=== PATIENT | female | born 1960 | race Caucasian/White ===

== ENCOUNTER 2017-05-30 05:22 | Inpatient (IN) | payer OTHER ==
[~2017-05-30] VITALS: Ht 167.6 cm; Wt 78.3 kg
[2017-05-30] MEDS ORDERED: PROAIR HFA8.5 GM INH (05:35)
[2017-05-30] MEDS ORDERED: ALL DAY ALLERGY10 MG PO (05:36)
[2017-05-30] MEDS ORDERED: LOTENSIN20 M1 PO (05:36)
[2017-05-30] MEDS ORDERED: BENZONATATE100 M1 PO (05:36)
[2017-05-30] MEDS ORDERED: COMBIPATCH 0.01 EACH TP (05:37)
[2017-05-30] MEDS ORDERED: LUTEIN20 M3 PO (05:37)
[2017-05-30] MEDS ORDERED: ATIVAN1 M1 PO (05:37)
[2017-05-30] MEDS ORDERED: OMEPRAZOLE20 M3 PO (05:38)
--- NOTE | 2017-05-30 06:28 | RADIOLOGY REPORT ---
EXAMINATION: XR CHEST CLINICAL INFORMATION: Cough. Congestion. COMPARISON: CT 08/26/2016 TECHNIQUE: 2 views of the chest were obtained. FINDINGS: The lungs are well expanded. There is no focal consolidation, edema, or effusion. No pneumothorax. The cardiomediastinal silhouette is within normal limits. No acute osseous abnormality. IMPRESSION: No acute pulmonary findings.
--- NOTE | 2017-05-30 06:57 | ED CARDIAC/CP/PALPITATIONS ---
See Addendum History of Present Illness General Chief Complaint: Upper Respiratory Sx/Fever Stated Complaint: " DIFF.BREATHING,URGENTCARE DIAG.UPPER RESP [id number]" Source: patient, family, old records Exam Limitations: no limitations Vital Signs & Intake/Output Vital Signs & Intake/Output Vital Signs Date Time Temp Pulse Resp B/P B/P Pulse O2 O2 Flow FiO2 Mean Ox Delivery Rate 05/30 0719 97.8 90 22 144/87 95 Room Air 05/30 0636 95 05/30 0538 98.5 114 24 175/114 98 Allergies Coded Allergies: Sulfa (Sulfonamide Antibiotics) (HIVES 05/30/17) amoxicillin (From AUGMENTIN) (RASH 05/30/17) clavulanic acid (From AUGMENTIN) (RASH 05/30/17) itraconazole (From SPORANOX) (HIVES 05/30/17) metronidazole (From FLAGYL) (GI 05/30/17) neomycin (GI 05/30/17) Reconcile Medications Albuterol Sulfate (Proair Hfa) 90 MCG HFA.AER.AD 2 PUF INH Q4-6 PRN PRN SOB ( Reported) Benazepril HCl (Lotensin) 20 MG TABLET 1 TAB PO DAILY BP (Reported) Benzonatate 100 MG CAPSULE 1 CAP PO TID COUGH (Reported) Cetirizine HCl (All Day Allergy) 10 MG TABLET 1 TAB PO DAILY ALLERGIES ( Reported) Estradiol/Norethindrone Acet (Combipatch 0.05-0.14 MG Ptch) 0.05 MG-0.14 MG/24 HOUR PATCH.TDSW 1 PATCH TP HORMONE (Reported) LORazepam (Ativan) 1 MG TAB 1 TAB PO TID ANXIETY (Reported) Lutein 20 MG CAPSULE 1 TAB PO DAILY NK (Reported) Omeprazole 20 MG TABLET.DR 1 TAB PO DAILY GERD (Reported) Triage Note: PER PT SEEN AT URGENT CARE 05/21/17 WAS NOT PRESCRIBED ANTIBIOTICS GIVEN COUGH MED AND INHALER DX W URI Triage Nurses Notes Reviewed? yes Onset: Last week Duration: day(s):, constant, continues in ED Timing: recent history Quality/Severity: moderate, pressure Location: substernal Radiation: no radiation Activities at Onset: rest Prior Chest Pain/Card Workup: no prior cardiac workup Modifying Factors: Worsens With: movement. Nitro Today/Relief: no nitro taken today Aspirin Today: no aspirin today Associated Symptoms: shortness of breath, weakness LMP (ages 10-50): post menopausal : No Patient currently breastfeeds: No HPI: 1 week prior to admission patient complains of upper respiratory congestion nonproductive cough with sinus pressure. She later developed substernal chest discomfort described as pressure nonradiating constant worse with exertion. She denies fever chills nausea vomiting diarrhea abdominal pain headache dysuria rash bleeding. (Devin Proctor MD) Past History Travel History Traveled to [place] past 21 day No Medical History Any Pertinent Medical History? see below for history Neurological: NONE EENT: NONE Cardiovascular: hypertension Respiratory: ALLERGIES Gastrointestinal: GERD Hepatic: NONE Renal: NONE Musculoskeletal: NONE Psychiatric: NONE Endocrine: NONE Surgical History Surgical History: non-contributory Psychosocial History What is your primary language Mongolian Tobacco Use: Never used Family History Hx Contributory? No (Devin Proctor MD) Review of Systems Review of Systems Constitutional: Reports: see HPI, malaise. EENTM: Reports: see HPI, nasal congestion. Respiratory: Reports: see HPI, cough, short of breath. Denies: sputum production. Cardiovascular: Reports: see HPI, chest pain. GI: Reports: no symptoms. Genitourinary: Reports: no symptoms. Musculoskeletal: Reports: no symptoms. Skin: Reports: no symptoms. Neurological/Psychological: Reports: no symptoms. Hematologic/Endocrine: Reports: no symptoms. Immunologic/Allergic: Reports: no symptoms. All Other Systems: Reviewed and Negative (Devin Proctor MD) Physical Exam Physical Exam General Appearance: well developed/nourished, alert, awake, anxious, moderate distress, obese Head: atraumatic, normal appearance Eyes: Bilateral: normal appearance. Ears, Nose, Throat: normal pharynx, normal ENT inspection Neck: normal inspection, supple, full range of motion, no midline tenderness Respiratory: chest non-tender, no respiratory distress, quiet respiration, decreased breath sounds Cardiovascular: regular rate/rhythm, normal peripheral pulses, tachycardia, norml femoral pulses equa Peripheral Pulses: 4+ carotid (R), 4+ carotid (L) Gastrointestinal: normal bowel sounds, soft, non-tender, no organomegaly Back: normal inspection, normal range of motion Extremities: normal inspection, normal capillary refill, normal range of motion, no edema Neurologic/Psych: no motor/sensory deficits, awake, alert, oriented x 3, normal gait, normal mood/affect, manufacturing weaver II-XII nml as tested Reflexes: 2+: bicep (R), bicep (L). Skin: intact, normal color, warm/dry Lymphatic: no anterior cervical ai Core Measures ACS in differential dx? No CVA/TIA Diagnosis No Sepsis Present: No Sepsis Focused Exam Completed? No (Esthela LOZOYA,Devin) Progress Differential Diagnosis: atrial fibrillation, costochondritis, hyperkalemia, musculoskeletal pain, pneumonia Plan of Care: Orders Procedure Date/time Status TROPONIN LEVEL 05/30 1000 Active EKG 05/30 1000 Active D-DIMER 05/30 629 Complete TROPONIN LEVEL 05/30 626 Complete COMPREHENSIVE METABOLIC PANEL 05/30 626 Complete CBC WITHOUT DIFFERENTIAL 05/30 626 Complete B-TYPE NATRIURETIC PEP (BNP) 05/30 626 Complete EKG 05/30 626 Active Current Medications Sig/Oralia Start time Last Medication Dose Stop Time Status Admin Albuterol Sulfate 3 ML ONCE ONE 05/30 814 UNVr (Proventil) 05/31 815 Ipratropium [place] 2.5 ML ONCE ONE 05/30 814 UNVr (Atrovent) 05/31 815 Prednisone 60 MG ONCE ONE 05/30 814 UNVr 05/31 815 Laboratory Tests 05/30/17 0700: Anion Gap 15, Estimated GFR > 60, BUN/Creatinine Ratio 12.5, Glucose 86, Calcium 9.4, Total Bilirubin 0.7, AST 63 H, ALT 63 H, Alkaline Phosphatase 97, Troponin I < 0.01, Qef-Y-Jpkficjrgyu Pept 98.5, Total Protein 7.3, Albumin 4.5, Globulin 2.8, Albumin/Globulin Ratio 1.6, D-Dimer High Sensitivty < 200, CBC w Diff NO MAN DIFF REQ, RBC 4.49, MCV 93.4, MCH 31.7 H, MCHC 34.0, RDW 13.3, MPV 6.9 L, Gran % 65.9, Lymphocytes % 13.9 L, Monocytes % 7.5, Eosinophils % 12.2 H, Basophils % 0.5, Absolute Granulocytes 7.0 H, Absolute Lymphocytes 1.5, Absolute Monocytes 0.8 H, Absolute Eosinophils 1.3, Absolute Basophils 0 Diagnostic Imaging: Viewed by Me: Radiology Read. Discussed w/RAD: Radiology Read. CXR Impression: no acute abnormality, no infiltrates Initial ED EKG: normal axis, normal intervals, normal p-waves, normal QRS complex, normal sinus rhythm, rate (sinus tachycardia), no ST T wave changes Prior EKG: unchanged Rhythm Strip: sinus tachycardia Hand-Off Endorsed To: Willy Dickson DO Endorsed Time: 722 Pending: labs (Devin Proctor MD) Departure Departure Disposition: STILL A PATIENT Condition: Stable Clinical Impression Primary Impression: Chest pain syndrome Secondary Impressions: Bronchitis Referrals: Pieter LOZOYA,Darío Gross (PCP/Family) Departure Forms: Customer Survey General Discharge Information (Devin Proctor MD) Departure Comments 05/30/17 8 AM The patient was signed out to me by Dr. Proctor She's complaining of chest heaviness She has bilateral wheezes. She has a history of reactive airway disease. EKG showed sinus tachycardia. First troponin, negative. Chest x-ray negative. She will have repeat troponin and EKG. We'll reevaluate after second respiratory treatment and prednisone (Willy Dickson DO) Critical Care Note Critical Care Note Critical Care Time: non-applicable (Devin Proctor MD)
[2017-05-30 07:30] LABS: ABSOLUTE BASOPHIL COUNT 0 /CUMM (0.0-0.2); ABSOLUTE EOSINOPHIL COUNT 1.3 /CUMM (0.0-0.7); ABSOLUTE LYMPH COUNT 1.5 /CUMM (1.2-3.4); ABSOLUTE MONOCYTE COUNT 0.8 /CUMM (0.10-0.60); BASOPHIL % 0.5 % (0.0-2.0); EOSINOPHIL % 12.2 % (0-5); GRANULOCYTE % 65.9 % (42.2-75.2); HEMATOCRIT 41.9 % (37-47); MEAN CORPUSCULAR HGB 31.7 PG (27.0-31.0); MEAN CORPUSCULAR VOLUME 93.4 FL (81.0-99.0); MEAN PLATELET VOLUME 6.9 FL (7.4-10.4); PLATELET COUNT 340 /CUMM (130-400); RBC DISTRIBUTION WIDTH 13.3 % (11.5-14.5); RED BLOOD CELL CT 4.49 /CUMM (4.20-5.40); WHITE BLOOD CELL COUNT 10.6 /CUMM (4.8-10.8)
--- NOTE | 2017-05-30 11:47 | History & Physical ---
Ashli LOZOYA,[facility] 05/30/17 1144: General Information and HPI MD Statement: I have seen and personally examined SACHI SCOTT and documented this H&P. The patient is a 56 year old F who presented with a patient stated chief complaint of dyspnea and SOB. Source of Information: patient, family, old records Exam Limitations: no limitations History of Present Illness: Ms Scott is a pleasant 56-year-old female past medical history of hypertension , postnasal drip and allergies who presented to the emergency department on 05/30 complaining of dyspnea and chest discomfort. Patient states that approximately week ago she was seen in urgent care facility. Diagnosed with upper respiratory infection presumed to be viral in etiology and was sent home on albuterol. She was not prescribed any antibiotics. After been discharge she continued to feel under the weather with her symptoms becoming progressively worse. Patient also states that she has been coughing. Cough is productive of black sputum. Prior to this she was exposed to secondhand smoke while she was cleaning out a home where occupant's appear to have a heavy smoking history. This morning prior to coming in she woke her up and asked him to bring to the emergency department owing to air hunger. She denied any fever, chills, nausea, vomiting. She did endorse chest pressure. She denies any chest pain or chest discomfort. Denies any abdominal pain or stool changes. Denies any dysuria, frequency, hematuria. Patient's primary care physician is Dr. Stapleton. Patient's Edgar was at bedside during the time of our clinical interaction. Allergies/Medications Allergies: Coded Allergies: Sulfa (Sulfonamide Antibiotics) (HIVES 05/30/17) amoxicillin (From AUGMENTIN) (RASH 05/30/17) clavulanic acid (From AUGMENTIN) (RASH 05/30/17) itraconazole (From SPORANOX) (HIVES 05/30/17) metronidazole (From FLAGYL) (GI 05/30/17) neomycin (GI 05/30/17) Home Med list Albuterol Sulfate (Proair Hfa) 90 MCG HFA.AER.AD 2 PUF INH Q4-6 PRN PRN SOB ( Reported) Benazepril HCl (Lotensin) 20 MG TABLET 1 TAB PO DAILY BP (Reported) Benzonatate 100 MG CAPSULE 1 CAP PO TID COUGH (Reported) Cetirizine HCl (All Day Allergy) 10 MG TABLET 1 TAB PO DAILY ALLERGIES ( Reported) Estradiol/Norethindrone Acet (Combipatch 0.05-0.14 MG Ptch) 0.05 MG-0.14 MG/24 HOUR PATCH.TDSW 1 PATCH TP HORMONE (Reported) LORazepam (Ativan) 1 MG TAB 1 TAB PO DAILY SLEEP (Reported) Lutein 20 MG CAPSULE 1 TAB PO DAILY NK (Reported) Omeprazole 20 MG TABLET.DR 2 TAB PO DAILY GERD (Reported) Compliance With Home Meds: GOOD Past History Travel History Traveled to [place] past 21 day No Medical History Neurological: NONE EENT: NONE Cardiovascular: hypertension Respiratory: ALLERGIES Gastrointestinal: GERD Hepatic: NONE Renal: NONE Musculoskeletal: NONE Psychiatric: NONE Endocrine: NONE Surgical History Surgical History: non-contributory Past Family/Social History Psychosocial History Where do you live? Home Who Do You Live With? spouse Services at Home: None Primary Language: Czech Smoking Status: Former Smoker (30 Pack history) ETOH Use: occasional use (Twice per week) Illicit Drug Use: denies illicit drug use Living Will? unknown Functional Ability ADLs Independent: dressing, eating, toileting, bathing. Ambulation: independent IADLs Independent: shopping, housework, finances, food prep, telephone, transportation , medication admin. Review of Systems Review of Systems Constitutional: Reports: see HPI. Exam & Diagnostic Data Last 24 Hrs of Vital Signs/I&O Vital Signs Date Time Temp Pulse Resp B/P B/P Pulse O2 O2 Flow FiO2 Mean Ox Delivery Rate 05/30 1215 152/96 05/30 1058 96.0 94 20 148/100 94 Room Air 05/30 0824 98.0 108 22 144/88 96 Room Air 05/30 0719 97.8 90 22 144/87 95 Room Air 05/30 0636 95 05/30 0538 98.5 114 24 175/114 98 Intake & Output 05/30 1600 05/30 0800 05/30 0000 Intake Total 480 Output Total Balance 480 Intake, Oral 480 Patient 72.575 kg Weight Physical Exam General Appearance Alert, Oriented X3, Cooperative Skin No Rashes Skin Temp/Moisture Exam: Warm/Dry Lymphatic Axillary nl Cardiovascular Normal S1, Normal S2, Tachycardic Lungs Normal Air Movement, Decreased Air entry Abdomen Normal Bowel Sounds, Soft Neurological Normal Gait, Normal Speech, Strength at 5/5 X4 Ext Extremities No Edema, No Tenderness/Swelling Vascular Normal Pulses Last 24 Hrs of Labs/Reji: Laboratory Tests 05/30/17 1010: Troponin I < 0.01 05/30/17 0700: Anion Gap 15, Estimated GFR > 60, BUN/Creatinine Ratio 12.5, Glucose 86, Calcium 9.4, Total Bilirubin 0.7, AST 63 H, ALT 63 H, Alkaline Phosphatase 97, Troponin I < 0.01, Wps-Y-Hyziavfufpn Pept 98.5, Total Protein 7.3, Albumin 4.5, Globulin 2.8, Albumin/Globulin Ratio 1.6, D-Dimer High Sensitivty < 200, CBC w Diff NO MAN DIFF REQ, RBC 4.49, MCV 93.4, MCH 31.7 H, MCHC 34.0, RDW 13.3, MPV 6.9 L, Gran % 65.9, Lymphocytes % 13.9 L, Monocytes % 7.5, Eosinophils % 12.2 H, Basophils % 0.5, Absolute Granulocytes 7.0 H, Absolute Lymphocytes 1.5, Absolute Monocytes 0.8 H, Absolute Eosinophils 1.3, Absolute Basophils 0 Microbiology 05/30 1225 URINE ROUT: Legionella Antigen - ORD 05/30 1225 LOWER RESP: Respiratory Culture - ORD 05/30 122 LOWER RESP: Gram Stain - ORD Diagnostic Data EKG Results Sinus Tachycardia Rate 105 CA 172 QTC 455 CXR Results SERVICE DATE: 05/30/17 EXAM TYPE: RAD - XRY-CHEST XRAY, TWO VIEWS EXAMINATION: XR CHEST CLINICAL INFORMATION: Cough. Congestion. COMPARISON: CT 08/26/2016 TECHNIQUE: 2 views of the chest were obtained. FINDINGS: The lungs are well expanded. There is no focal consolidation, edema, or effusion. No pneumothorax. The cardiomediastinal silhouette is within normal limits. No acute osseous abnormality. IMPRESSION: No acute pulmonary findings. Assessment/Plan Assessment: Ms Scott is a pleasant 56-year-old female past medical history of hypertension , postnasal drip and allergies who presented to the emergency department on 05/30 complaining of dyspnea and chest discomfort. Her condition is likely due to worsening component of bronchial spasm in the setting of long-standing smoking history as well as being exposed to secondhand cigarette smoke. Her chest discomfort is likely due to repeated bouts of coughing/musculoskeletal in etiology. #Bronchitis in the setting of history of asthma query COPD diagnosis and exacerbation. #Chest pain syndrome rule out ACS. #History of anxiety. #History of hypertension. #History of chronic allergies. Admit patient to general medicine. Patient was given prednisone 60 mg in the emergency department. IV Solumederol 40 Q12. Consider Pulmonology consultation if symptoms fail to resolve/worsen. Consider bedside spirometry versus outpatient follow-up. IV azithromycin for anti-inflammatory properties. TRC nebulizer treatments. May consider addition of Mucomyst inhalant. Continue Ativan for anxiety. Patient has been ruled out for ACS and initial troponins and EKG have been within normal limits. BEP in a.m. Continue home medications including Benzapril for hypertension, omeprazole for GERD and daily antihistamines. May consider the addition of nasal steoids to reduce inflamation. Diet regular heart healthy. DVT prophylaxis with Lovenox. Patient is a full code. As Ranked By This Provider Problem List: 1. Bronchitis 2. Chest pain syndrome Core Measures/Misc (10/31) Acute Coronary Syndrome ACS Diagnosis: No Congestive Heart Failure Congestive Heart Failure Diagnosis No Cerebrovascular Accident CVA/TIA Diagnosis: No VTE (View Protocol) VTE Risk Factors Age>40 No Mechanical VTE Prophylaxis d/t N/A MechProphylax Ordered No VTE Pharm Prophylaxis d/t NA PharmProphylax ordered Sepsis (View protocol) Sepsis Present: No Nicholas Pike MD 05/30/17 2418: Attending MD Review Statement Attending Statement Attending MD Statement: examined this patient, discuss w/resident/PA/STRAP STITCHER, agreed w/resident/PA/STRAP STITCHER, discussed with family, reviewed EMR data (avail), reviewed images, amended to note Attending Assessment/Plan: The patient is a 56 yo female with h/o HTN and allergies/post nasal drip who presented in the [facility] ED with c/o progressive dyspnea and left chest discomfort along with cough. She was seen 1 week ago at urgent care and given an albuterol MDI. She did have a h/o prior admission for bronchitis in the past ( not recent). She stated she had been cleaning a home (where former occupant had been a smoker) and after cleaning she coughed up dark mucous. She denied any fever. Left chest discomfort is with cough or position change (not exertional). Physical Exam: VS: T 98.5, P 114-94, R 24-20, BP 148/100-152/96, PO 94% RA HEENT: eyes- PERRLA, EOMI francoise- dry mucosa w/o lesions Neck: No JVD/bruits Chest: diminished air movement diffusely with mild diffuse expiratory wheeze and scattered rhonchi Cor: tachy, reg, nl S1, S2 w/o murm Abd: BS+, soft, NT, - HSM Ext: no edema, pulses 2+ Neuro: alert & oriented x 3, non-focal exam (gait not tested). Impression/Plan: #Asthmatic Bronchitis- acute, ? COPD. No h/o diagnosis of COPD, however was a former smoker (30 pack year). Has been treated with an inhaler one other time. Appears to be some allergic component as symptoms began after cleaning a home that was dirty. Plan: Admit to general medicine service. IV Medrol/Albuterol aerosol/Tessalon Perles. If not improving will need pulmonary consult tomorrow. Agree with Zithromax. #Left Chest Pain- most likely musculoskeletal as worse with cough. ECG is normal and troponin negative. Plan: Tylenol prn and will follow. #Essential HTN- usually good on Lotensin. Plan: Continue lotensin at present (will notify her PCP). #Anxiety- she takes chronic Ativan qpm. Plan: Will continue chronic Ativan. #GERD- on omeprazole. Plan: Continue omeprazole. #Allergies- on Cetirizine. Plan: Continue Cetirizine and add Nasal steroid.
[2017-05-30 12:15] VITALS: BP 152/96
[2017-05-30 15:33] VITALS: BP 100/60
--- NOTE | 2017-05-30 17:34 | Admission Certification ---
Admission Certification Certification Statement - As attending physician, I certify that at the time of - admission, based on clinical presentation, severity of - symptoms, need for further diagnostic testing and - therapeutic interventions, and risk of adverse outcomes - without in-hospital treatment, in my clinical assessment, - this patient requires an acute hospital stay for a minimum - of two nights or longer. I have also considered psychsocial - factors such as support system, advanced age, financial - issues, cognitive issues, and failed out-patient treatments, - past re-admission history, safety of patient, and lack of - compliance as applicable. Specific rationale supporting this admission is: Patient presents with acute dyspnea triggered by ?allergies. Appears to have significant bronchospasm. Needs admission for close respiratory monitoring, IV Medrol, nebs, Zithromax.
[2017-05-30 22:18] VITALS: BP 120/82
[2017-05-31 06:00] VITALS: BP 140/86
--- NOTE | 2017-05-31 07:35 | PN- Housestaff ---
Rashid Fuchs 05/31/17 0734: Subjective Follow-up For: Asthmatic bronchitis Reactive airway disease Subjective: The patient was seen and examined. Her SOB has much improved. Reports having post nasal drip, mentioning that usually benadryl improves her better than claritin. Does not carry h/o COPD. Has long-term h/o allergy, underwent allergy testing as a child. Denies any CP, N/V/Abd pain. VSS. Review of Systems Constitutional: Reports: no symptoms. Objective Last 24 Hrs of Vital Signs/I&O Vital Signs Date Time Temp Pulse Resp B/P B/P Pulse O2 O2 Flow FiO2 Mean Ox Delivery Rate 05/31 0926 96 Room Air Room Air 05/31 0919 83 140/86 05/31 0800 Room Air 05/31 0600 98.1 83 18 140/86 94 Room Air 05/31 0000 Room Air 05/30 2218 97.9 98 18 120/82 92 Room Air 05/30 1827 Room Air Room Air 05/30 1533 98.7 76 18 100/60 3 Room Air 05/30 1441 97.7 113 18 124/60 94 Room Air 05/30 1247 152/98 05/30 1215 152/96 Intake & Output 05/31 1600 05/31 0800 05/31 0000 Intake Total 110 100 Output Total Balance 110 100 Intake, IV 10 Intake, Oral 100 100 Physical Exam General Appearance: Alert, Oriented X3, Cooperative, No Acute Distress Skin: No Rashes Skin Temp/Moisture Exam: Warm/Dry HEENT: Atraumatic, PERRLA, EOMI, Mucous Membr. moist/pink Neck: Supple Lymphatic: Cervical nl Cardiovascular: Regular Rate, Normal S1, Normal S2, No Murmurs, Gallops, Rubs Lungs: Mild expiratory wheezes Abdomen: Normal Bowel Sounds, Soft, No Tenderness, No Hepatospenomegaly, No Masses Neurological: Normal Speech Extremities: No Clubbing, No Cyanosis, No Edema, Normal Pulses, No Tenderness/ Swelling Vascular: Normal Pulses, Pulses Symmetrical Current Medications: Current Medications Sig/Oralia Start time Last Medication Dose Route Stop Time Status Admin Albuterol Sulfate 3 ML BID 05/30 2100 AC 05/31 INH 0924 Albuterol Sulfate 2 PUF Q4-6 PRN PRN 05/30 1230 AC INH Azithromycin 500 MG Q24H 05/30 1230 AC 05/30 Dextrose/Water 250 ML IV 1336 Benzonatate 100 MG TID 05/30 1400 AC 05/31 PO 0919 Diphenhydramine HCl 25 MG DAILY PRN 05/31 0921 AC 05/31 PO 0943 Diphenhydramine HCl 25 MG AT BEDTIME PRN 05/31 0915 DC PO Enoxaparin Sodium 0 .STK-MED ONE 05/30 1334 DC SC Enoxaparin Sodium 40 MG DAILY@1300 05/30 1300 AC 05/30 SC 1336 Fluticasone 2 SPRAY DAILY 05/31 0913 AC 05/31 Propionate KIANA 0944 Ipratropium [place] 2.5 ML BID 05/30 2100 AC 05/31 INH 0924 Lisinopril 0 .STK-MED ONE 05/30 1250 DC PO Lisinopril 20 MG DAILY 05/30 1230 AC 05/31 PO 0919 Loratadine 10 MG DAILY PRN 05/30 2207 DC PO Loratadine 10 MG DAILY 05/30 1930 DC PO Lorazepam 1 MG AT BEDTIME 05/31 2100 AC PO Lorazepam 0.5 MG ONE ONE 05/30 2215 DC 05/30 PO 05/30 2216 2214 Lorazepam 0 .STK-MED ONE 05/30 1251 DC PO Lorazepam 1 MG DAILY 05/30 1223 DC 05/30 PO 1247 Methylprednisolone 40 MG Q12 05/30 1337 AC 05/31 IV 0920 Omeprazole 0 .STK-MED ONE 05/30 1251 DC PO Omeprazole 40 MG DAILY AC 05/30 1223 AC 05/31 PO 0627 Last 24 Hrs of Lab/Reji Results Last 24 Hrs of Labs/Mics: Laboratory Tests 05/31/17 0625: Anion Gap 12, Estimated GFR > 60, BUN/Creatinine Ratio 14.0 Microbiology 05/30 1352 NASOPHARYN: Influenza Virus A & B Rapid Smear - COMP 05/30 1225 URINE ROUT: Legionella Antigen - COLB 05/30 1225 LOWER RESP: Respiratory Culture - COLB 05/30 1225 LOWER RESP: Gram Stain - COLB Assessment/Plan Assessment: This is a 56-year-old lady with past medical history significant for hypertension, chronic allergy and postnasal drip who presented to the hospital with progressive dyspnea and chest discomfort along with cough. She was evaluated in an urgent care 1 week prior to admission and was given albuterol. On admission, she reported that she has been cleaning at home where former resident was a smoker and then she started coughing up dark mucus. EKG was normal and troponin was negative upon her presentation. Problem list/plan: #Acute asthmatic bronchitis versus reactive airway disease: The patient does not report to have any history/diagnosis of COPD. She is a former [id number] smoker. Her symptoms has much improved since admission. * Continue with steroids and azithromycin can be changed to by mouth. * Patient is stable to be discharged. #Allergy/PND: * On cetirizine at home; ensuring that her symptoms are more severe than her usual is asking for Benadryl 1 and a hospital. * With nasal steroids. #Left-sided chest pain: * Musculoskeletal after cough * Troponin negative, EKG without significant abnormality #Anxiety: * Continue with SUBSTANCE ABUSE COUNSELOR Ativan #GERD: * Continue with omeprazole #DVT prophylaxis: * Subcutaneous Lovenox #Patient is full code. Problem List: 1. Asthmatic bronchitis Pain Ratin Pain Location: Left-sided chest Pain Goal: Pain 4 or less Pain Plan: PRN assessment Tomorrow's Labs & Rationales: Nicholas Prescott MD 05/31/17 1333: Attending MD Review Statement Attending Statement Attending MD Statement: examined this patient, discuss w/resident/PA/PBX TECHNICIAN, agreed w/resident/PA/PBX TECHNICIAN, reviewed EMR data (avail), discussed with nursing, discussed with case mgmt, amended to note Attending Assessment/Plan: The patient was seen and discussed with resident. Clinically significantly improved today. Still c/o post nasal drip and cough. Chest exam significantly improved with good air movement and decreased wheeze/rhonchi. If continues to improve will discharge later today on Prednisone taper, Symbicort, Albuterol MDI 's, Zithromax, etc. Follow-up with PCP Dr. Stapleton.
--- NOTE | 2017-05-31 10:58 | Patient Discharge Instructions ---
Discharge Instructions General Discharge Information You were seen/treated for: Asthmatic bronchitis Reactive airway disease Special Instructions: -Please follow up with your PCP within a week of discharge. -Please take your medications as instructed. -Please return to the hospital if your symptoms not improve/worsen. Diet Continue normal diet: Yes Activity Additional ACTIVITY Info: As tolerated Acute Coronary Syndrome Inclusion Criteria At DC or during hospital stay patient has or had the following: Discharge Core Measures Meds if any: Prescribed or Continued at Discharge Meds if any: NOT Prescribed or Continued at Discharge Congestive Heart Failure Inclusion Criteria At DC or during hospital stay patient has or had the following: Discharge Core Measures Meds if any: Prescribed or Continued at Discharge Meds if any: NOT Prescribed or Continued at Discharge Cerebrovascular accident Inclusion Criteria At DC or during hospital stay patient has or had the following: CVA/TIA Diagnosis No Discharge Core Measures Meds if any: Prescribed or Continued at Discharge Meds if any: NOT Prescribed or Continued at Discharge Venous thromboembolism Discharge Core Measures - Per Current guidelines, there needs to be overlap - treatment for the first 5 days of Warfarin therapy. - If discharged on Warfarin prior to 5 days of - overlap therapy, the patient will need to be - assessed for post discharge needs including - *Post discharge parental anticoagulation - *Warfarin and/or parental anticoagulation education - *Follow up date to check INR post discharge Meds if any: Prescribed or Continued at Discharge Note: Overlap Therapy is Warfarin and Anticoagulant Meds if any: NOT Prescribed or Continued at Discharge
[2017-05-31] MEDS ORDERED: PREDNISONE10 M2 PO (13:35)
[2017-05-31] MEDS ORDERED: AZITHROMYCIN500 M3 PO ×2 (13:35→14:00)
[2017-05-31] MEDS ORDERED: FLONASE SENSIM9.9 ML NAS ×2 (13:36→14:00)
[2017-05-31] MEDS ORDERED: SYMBICORT 80-10.2 GM INH ×2 (13:38→14:00)
[2017-05-31 13:43] VITALS: BP 122/80
--- NOTE | 2017-05-31 15:00 | Discharge Summary ---
Hospital Course Allergies: Coded Allergies: Sulfa (Sulfonamide Antibiotics) (HIVES 05/30/17) amoxicillin (From AUGMENTIN) (RASH 05/30/17) clavulanic acid (From AUGMENTIN) (RASH 05/30/17) itraconazole (From SPORANOX) (HIVES 05/30/17) metronidazole (From FLAGYL) (GI 05/30/17) neomycin (GI 05/30/17) Discharge Instructions Medications at Discharge Discharge Medications: Continue taking these medications: Albuterol Sulfate (Proair Hfa) 90 MCG HFA.AER.AD 2 Puff Inhale through mouth EVERY 4-6 HOURS NEEDED as needed for SOB Comments: DID NOT ADMINISTER IN HOSPITAL Benzonatate (Benzonatate) 100 MG CAPSULE 1 Capsule ORAL THREE TIMES DAILY Comments: Last Taken: 05/31/17 Time: 2:15PM Benazepril HCl (Lotensin) 20 MG TABLET 1 Tablet ORAL DAILY Comments: LISINOPRIL ADMINISTERED Last Taken: 05/31/17 Time: 9AM Cetirizine HCl (All Day Allergy) 10 MG TABLET 1 Tablet ORAL DAILY Comments: DID NOT ADMINISTER IN HOSPITAL Estradiol/Norethindrone Acet (Combipatch 0.05-0.14 MG Ptch) 0.05 MG-0.14 MG/24 HOUR PATCH.TDSW 1 PATCH TOPICAL Comments: DID NOT ADMINISTER IN HOSPITAL LORazepam (Ativan) 1 MG TAB 1 Tablet ORAL DAILY Comments: Last Taken: 05/30/17 Time: 1247 Lutein (Lutein) 20 MG CAPSULE 1 Tablet ORAL DAILY Comments: DID NOT ADMINISTER IN HOSPITAL Omeprazole (Omeprazole) 20 MG TABLET.DR 2 Tablet ORAL DAILY Comments: Last Taken: 05/31/17 Time: 6:30AM Start taking the following new medications: Budesonide/Formoterol Fumarate (Symbicort 80-4.5 Mcg Inhaler) 80 MCG-4.5 MCG/ ACTUATION HFA.AER.AD 2 Puff Inhale through mouth TWICE DAILY Qty = 1 No Refills Comments: DID NOT ADMINISTER IN HOSPITAL Azithromycin (Azithromycin) 500 MG TABLET 1 Tablet ORAL DAILY Qty = 3 No Refills Instructions: Start on 06/01/17. Comments: IV FORM ADMINISTERED Fluticasone Furoate (Flonase Sensimist) 27.5 MCG/ACTUATION SPRAY.SUSP 1 Puff In the nose DAILY Qty = 1 No Refills Comments: Last Taken: 05/31/17 Time: 9:45AM Prednisone (Prednisone) 10 MG TABLET 0 ORAL SEE INSTRUCTIONS Qty = 31 No Refills Instructions: 5 tabs on 06/01, 06/02 4 tabs on 06/03,06/04 3 tabs on 06/05, 06/06 2 tabs on 06/07, 06/08 1 tab on 06/09, 06/10 0.5 tab on 06/11, 06/12 Then stop Comments: IV SOLUMEDROL GIVEN
== END 2017-05-31 15:30 | DRG 203 ==
LOC: ERH 05:22 → ERHI 11:19 → 2NA 11:19 → ENRESERV 12:40 → ENTRNSPT 14:23 → EDTRNSPT 14:24 → EDTRNSPTSTS 14:42 → EDTRNSPT 14:42 → 2NA 14:52 → CMPTRNSPT 14:55 → EDTRNSPT 14:55 → ENPENDDIS 05-31 14:18 → ENTRNSPT 05-31 15:25 → 2NA 05-31 15:30 → EDTRNSPT 05-31 15:45 → EDTRNSPTSTS 05-31 15:45 → CMPTRNSPT 05-31 15:59
PROVIDERS: Emergency Medicine
DX: J20.9 Acute bronchitis, unspecified (principal); F41.9 Anxiety disorder, unspecified; I10 Essential (primary) hypertension; K21.9 Gastro-esophageal reflux disease without esophagitis; Z91.09 Other allergy status, other than to drugs and biological substances; Z87.891 Personal history of nicotine dependence; Z77.22 Contact with and (suspected) exposure to environmental tobacco smoke (acute) (chronic); R07.89 Other chest pain; J45.909 Unspecified asthma, uncomplicated; Z88.1 Allergy status to other antibiotic agents; Z88.2 Allergy status to sulfonamides; Z88.8 Allergy status to other drugs, medicaments and biological substances; Z79.51 Long term (current) use of inhaled steroids
CPT/HCPCS: 2NASP; 36592; 71046; 82436; 87070; 87449; 87804; 87804-59; 93005; 93010; J0456; J1650; J2920; J3490; J7060